=== PATIENT | male | born 1975 | race Caucasian/White ===

== ENCOUNTER 2018-06-08 19:30 | Observation (INO) | payer BC ==
[2018-06-08] MEDS ORDERED: Enoxaparin(*) 100 MG/ML SYR SUBCUT ONE (21:01)
[2018-06-08] MEDS ORDERED: Nitroglycerin 0.2 MG/HR PATCH* (5 MG) TRANSDERM ONE (21:01)
[2018-06-08] MEDS ORDERED: Aspirin 81 mg CHEW TAB* 81 MG TAB.CHEW PO ONE (21:01)
--- NOTE | 2018-06-08 21:16 | ED ---
HPI Chest Pain - HPI Summary HPI Summary: This patient is a 42 year old M presenting to [facility] with a chief complaint of central diffuse CP and heaviness/pressure since 06/07 s/p a high stress day and a heated argument with his . He is endorsing nausea, burning pain in his right neck, right anterior right sided CP near shoulder, dizziness, insomnia secondary to feeling hot/hyperthermic. Pt is a former smoker (quit over 10 years ago). He denies PMHx DM, HTN, CAD, heart problem. He denies using recreation stimulant substances. FHx uncle with arrhythmia, no other heart history. - History of Current Complaint Chief Complaint: EDChestWallPain Time Seen by Provider: 06/08/18 20:50 Hx Obtained From: Patient Onset/Duration: Started Days Ago, Still Present Timing: Constant Initial Severity: Moderate Current Severity: Moderate Pain Intensity: 4 Pain Scale Used: 0-10 Numeric Chest Pain Location: Mid Sternal, Right Anterior Chest Pain Radiates: Yes Chest Pain Radiates To:: Shoulder - R, Neck - R Character: Burning, Pressure/Squeezing, Tightness Aggravating Factor(s): Other: - Stress/arguement Alleviating Factor(s): Nothing Associated Signs and Symptoms: Positive: Chest Pain, Recent Stress, Dizziness, Fever - last PM, felt hot/hyperthermic, Nausea - Allergy/Home Medications Allergies/Adverse Reactions: Allergies Allergy/AdvReac Type Severity Reaction Status Date / Time No Known Allergies Allergy Verified 06/08/18 19:34 Home Medications: Home Medications NK [No Home Medications Reported] 06/08/18 [History Confirmed 06/08/18] PMH/Surg Hx/FS Hx/Imm Hx Endocrine/Hematology History: Denies: Hx Diabetes, Hx Sickle Cell Disease Cardiovascular History: Denies: Hx Hypertension Respiratory History: Denies: Hx Lung Cancer GI History: Denies: Hx Ileostomy History: Denies: Hx Dialysis Sensory History: Denies: Hx Legally Blind, Hx Deafness Opthamlomology History: Denies: Hx Legally Blind EENT History: Denies: Hx Deafness Neurological History: Denies: Hx Dementia Psychiatric History: Denies: Hx Autism Infectious Disease History: No Infectious Disease History: Denies: Traveled Outside the [place] in Last 30 Days - Family History Known Family History: Positive: Blood Disorder - brother, Other - arrhythmia Negative: Cardiac Disease, Hypertension - Social History Lives: With Family Alcohol Use: Rare Hx Substance Use: Yes Substance Use Type: Reports: Marijuana Hx Tobacco Use: Yes Smoking Status (MU): Former Smoker Review of Systems Positive: Fever - hot feeling last night/hyperthermic Positive: Chest Pain Positive: Nausea Positive: no symptoms reported Positive: Myalgia - right neck, right anterior shoulder Neurological: Other - Dizziness All Other Systems Reviewed And Are Negative: Yes Physical Exam - Summary Physical Exam Summary: Appearance: Well appearing, no pain distress Skin: warm, dry, reflects adequate perfusion Head/face: normal Eyes: EOMI, LOUISE ENT: normal Neck: supple, non-tender Respiratory: CTA, breath sounds present Cardiovascular: RRR, pulses symmetrical Abdomen: non-tender, soft Bowel: present Musculoskeletal: normal, strength/ROM intact Neuro: normal, sensory motor intact, A&Ox3 Triage Information Reviewed: Yes Vital Signs On Initial Exam: Initial Vitals Temp Pulse Resp BP Pulse Ox 97.4 F 82 16 121/67 99 06/08/18 19:33 06/08/18 19:33 06/08/18 19:33 06/08/18 19:33 06/08/18 19:33 Vital Signs Reviewed: Yes Diagnostics - Vital Signs Vital Signs Temp Pulse Resp BP Pulse Ox 06/08/18 20:26 58 15 96 06/08/18 20:25 62 17 127/86 97 06/08/18 19:33 97.4 F 82 16 121/67 99 - Laboratory Result Diagrams: 06/08/18 21:15 Lab Statement: Any lab studies that have been ordered have been reviewed, and results considered in the medical decision making process. - Radiology CXR Xray Interpretation: No Acute Changes Radiology Interpretation Completed By: ED Physician - Normal CXR. Pending official imaging report. - EKG 2025 Cardiac Rate: NL - 71 EKG Rhythm: Sinus Rhythm Ectopy: None EKG Interpretation: Q waves and T-wave inversions in leads III, AVF. Chest Pain Course/Dx - Course Course Of Treatment: A 42-year-old M presents to the ED with a CC of diffuse central CP s/p an arguement yesterday with his and a high stress day. (+) nausea, dizziness, pain radiation to right shoulder and right neck. He denies PMHx HTN, DM, CAD. He notes he is a former smoker, quit 10 years ago. He moved from [place], had a heated arguement and stressful day last night and sx onset right afterwards. He notes he could not sleep secondary to hot/flush/ hyperthermic feeling. A CXR was (-). An EKG reveals NSR at 71 BPM with T-wave inversions and Q waves in leads III and AVF. In the ED course, pt was given ASA , NTG, and Lovenox. Dr. Alejandro will follow up on labs and CTA. - Chest Pain Differential Diagnosis/HQI/PQRI: Acute NM, ACS, CHF, Lower Respiratory Infection , Pulmonary Embolism - Diagnoses Provider Diagnoses: Unstable angina - Provider Notifications Discussed Care Of Patient With: Matias Alejandro Time Discussed With Above Provider: 21:17 Instructed by Provider To: Other - accepts admission, will follow up on labs and CTA. - Critical Care Time Critical Care Time: 30-74 min Discharge - Sign-Out/Discharge Documenting (check all that apply): Patient Departure - admit - Discharge Plan Condition: Fair Disposition: ADMITTED TO [facility] Referrals: No Primary Care Phys,NOPCP [Primary Care Provider] - - Billing Disposition and Condition Condition: FAIR Disposition: Admitted to [facility] - Attestation Statements Document Initiated by Taliaibsrinivas: Yes Documenting Scribe: Vishal Rubio Provider For Whom Tameka is Documenting (Include Credential): Dr. Robert Jimenez MD Scribe Attestation: Vishal Frankel, scribed for Dr. Robert Jimenez MD on 06/08/18 at 2139. Scribe Documentation Reviewed: Yes Provider Attestation: The documentation as recorded by the Vishal oliver accurately reflects the service I personally performed and the decisions made by me, Dr. Robert Jimenez MD
[2018-06-08 21:22] LABS: ABS Basophils 0.1 10^3/ul (0-0.2); ABS Eosinophils 0.2 10^3/ul (0-0.6); ABS Lymphocytes 2.3 10^3/ul (1.0-4.8); ABS Monocytes 0.5 10^3/ul (0-0.8); ABS Nucleated RBC 0 10^3/ul; Eosinophil % 2.6 % (0-6); Hematocrit 45 % (42-52); Hemoglobin 15.3 g/dl (14.0-18.0); Lymphocyte % 33.1 % (25-47); Mean Corpuscular HGB Conc 34 g/dl (31-36); Mean Corpuscular Hemoglobin 32 pg (27-31); Mean Corpuscular Volume 93 fL (80-94); Mean Platelet Volume 7.7 um3 (7.4-10.4); Nucleated Red Blood Cells % 0.1; Platelet Count 230 10^3/ul (150-450); Red Blood Count 4.85 10^6/ul (4.00-5.40); Red Cell Distribution Width 13 % (10.5-15)
[2018-06-08 21:30] LABS: INR 0.86 (0.77-1.02)
[2018-06-08] MEDS ORDERED: Nitroglycerin 2% OINT* 1 GM PAK ONE (21:36)
[2018-06-08 21:41] LABS: EGFR Non-African American 81.4 (>60)
--- NOTE | 2018-06-08 21:49 | HP ---
H&P (Free Text) History and Physical: PCP: none Date/Time: 06/08/20182139 CC: chest pain HPI: Mr Shen is a 42YO male HX testicular CA who is completing a stressful move from [place]. Yesterday morning after an argument with his he experienced the rapid onset of non-exertional chest pressure radiating to the R shoulder and R neck associated with nausea, SOB, and sweating, but no palpitations or unusual light-headedness. He does report he often gets R shoulder and R jaw aching with exercise and has since childhood. Of note his brother has a bleeding issue the name of which he cannot recall and has had a DVT/PE. His ECG was concerning for having Q-waves in III/AVF and an inverted T in III suggesting R heart strain. D-dimer & CTA chest were both negative, however. Troponin is negative as well. PMedHx testicular CA Ambulatory Orders NK [No Home Medications Reported] 06/08/18 Allergies No Known Allergies Allergy (Verified 06/08/18 19:34) PSurgHx L orchiectomy R inguinal hernia repair anterior R thigh lipoma excision SocHx: quit smoking 2006 w/ <5PYHX but continues to chew tobacca, 1-2 alcoholic drinks daily, occasional marijuana but no other recreational drugs; works as an entrepreneurial engineering scientist; ; full code status FamHx: Mother is alive at 74 with HX non-cancerous thyroid nodule. Father is alive at 75 with cerebellar ataxia & glaucoma. Brother: uncertain bleeding issue (not Von Willabrand's) w/ HX DVT/PE ROS: as above, otherwise reviewed and all were negative vitals: Vital Signs Temp 36.8 C 06/08/18 22:55 Pulse 68 06/08/18 22:55 Resp 18 06/08/18 22:55 BP 136/78 06/08/18 22:55 Pulse Ox 97 06/08/18 22:55 Intake & Output 06/08/18 06/08/18 06/09/18 11:59 23:59 11:59 Weight 94.302 kg Constitutional: NAD, normally developed, overweight white male with pronounced [place] accent HEENM: atraumatic; sclera/conjunctiva: anicteric/clear; hearing: clinically intact; oropharynx: clear, mucosa moist Neck: soft tissue: non-tender; thyroid: normal Pulmonary: clear to auscultation bilaterally, good aeration, no accessory muscle use CV: RR/RR, normal S1S2, no carotid bruit, no jugular venous distention, 2+ B DP/ PT, no edema Abdominal: soft, non-distended, non-tender, no rebound/guarding/rigidity, normoactive bowel sounds, no hepatosplenomegaly or masses, no costovertebral angle tenderness Musculoskeletal: general: grossly intact; gait: stable Integumental: normal appearance and texture of exposed skin Psychiatric orientation: AA&O to PPS affect: calm mood: cooperative eye contact: good content: reliable responses: timely insight: good Testing: Lab Results 06/08/18 06/08/18 06/08/18 Range/Units 21:15 21:15 21:15 WBC 7.0 (3.5-10.8) 10^3/ul RBC 4.85 (4.00-5.40) 10^6/ul Hgb 15.3 (14.0-18.0) g/dl Hct 45 (42-52) % MCV 93 (80-94) fL MCH 32 H (27-31) pg MCHC 34 (31-36) g/dl RDW 13 (10.5-15) % Plt Count 230 (150-450) 10^3/ul MPV 7.7 (7.4-10.4) um3 Neut % (Auto) 56.3 (38-83) % Lymph % (Auto) 33.1 (25-47) % [place] % (Auto) 6.8 (0-7) % Eos % (Auto) 2.6 (0-6) % Baso % (Auto) 1.2 (0-2) % Absolute Neuts (auto) 4.0 (1.5-7.7) 10^3/ul Absolute Lymphs (auto) 2.3 (1.0-4.8) 10^3/ul Absolute Monos (auto) 0.5 (0-0.8) 10^3/ul Absolute Eos (auto) 0.2 (0-0.6) 10^3/ul Absolute Basos (auto) 0.1 (0-0.2) 10^3/ul Absolute Nucleated RBC 0 10^3/ul Nucleated RBC % 0.1 INR (Anticoag Therapy) 0.86 (0.77-1.02) APTT 33.9 (26.0-36.3) seconds D-Dimer, Quantitative < 200 (Less Than 230) ng/mL Sodium 138 (135-145) mmol/L Potassium 3.9 (3.5-5.0) mmol/L Chloride 105 (101-111) mmol/L Carbon Dioxide 26 (22-32) mmol/L Anion Gap 7 (2-11) mmol/L BUN 15 (6-24) mg/dL Creatinine 1.01 (0.67-1.17) mg/dL Est GFR ( Amer) 98.5 (>60) Est GFR (Non-Af Amer) 81.4 (>60) BUN/Creatinine Ratio 14.9 (8-20) Glucose 101 H (70-100) mg/dL Lactic Acid (0.5-2.0) mmol/L Calcium 9.5 (8.6-10.3) mg/dL Total Bilirubin 0.40 (0.2-1.0) mg/dL AST 23 (13-39) U/L ALT 26 (7-52) U/L Alkaline Phosphatase 60 (34-104) U/L Troponin I 0.00 (<0.04) ng/mL B-Natriuretic Peptide ( - 100) pg/mL Total Protein 7.2 (6.4-8.9) g/dL Albumin 4.8 (3.2-5.2) g/dL Globulin 2.4 (2-4) g/dL Albumin/Globulin Ratio 2.0 (1-3) 06/08/18 06/08/18 06/09/18 Range/Units 21:15 21:15 00:08 WBC (3.5-10.8) 10^3/ul RBC (4.00-5.40) 10^6/ul Hgb (14.0-18.0) g/dl Hct (42-52) % MCV (80-94) fL MCH (27-31) pg MCHC (31-36) g/dl RDW (10.5-15) % Plt Count (150-450) 10^3/ul MPV (7.4-10.4) um3 Neut % (Auto) (38-83) % Lymph % (Auto) (25-47) % [place] % (Auto) (0-7) % Eos % (Auto) (0-6) % Baso % (Auto) (0-2) % Absolute Neuts (auto) (1.5-7.7) 10^3/ul Absolute Lymphs (auto) (1.0-4.8) 10^3/ul Absolute Monos (auto) (0-0.8) 10^3/ul Absolute Eos (auto) (0-0.6) 10^3/ul Absolute Basos (auto) (0-0.2) 10^3/ul Absolute Nucleated RBC 10^3/ul Nucleated RBC % INR (Anticoag Therapy) (0.77-1.02) APTT (26.0-36.3) seconds D-Dimer, Quantitative (Less Than 230) ng/mL Sodium (135-145) mmol/L Potassium (3.5-5.0) mmol/L Chloride (101-111) mmol/L Carbon Dioxide (22-32) mmol/L Anion Gap (2-11) mmol/L BUN (6-24) mg/dL Creatinine (0.67-1.17) mg/dL Est GFR ( Amer) (>60) Est GFR (Non-Af Amer) (>60) BUN/Creatinine Ratio (8-20) Glucose (70-100) mg/dL Lactic Acid 0.8 (0.5-2.0) mmol/L Calcium (8.6-10.3) mg/dL Total Bilirubin (0.2-1.0) mg/dL AST (13-39) U/L ALT (7-52) U/L Alkaline Phosphatase (34-104) U/L Troponin I 0.00 (<0.04) ng/mL B-Natriuretic Peptide 6 ( - 100) pg/mL Total Protein (6.4-8.9) g/dL Albumin (3.2-5.2) g/dL Globulin (2-4) g/dL Albumin/Globulin Ratio (1-3) ECG, personally reviewed: NSR rate 71, Q-waves III/AVF, inverted T-wave III, flattened T-wave AVF; no comparison CXR, personally reviewed: no acute process CTA chest, personally reviewed: IMPRESSION: No visible acute pulmonary embolism. Impression: 42M HX testicular CA presents with atypical chest pain for r/o ACS DIAGNOSIS & PLAN Primary chest pain r/o ACS : telemetry : trend troponin : supplemenal oxygen : enoxaparin 1mg/kg given in ED : aspirin 324mg given in ED : no beta-estelle 2nd bradycardia : supplemental oxygen : exercise stress test in AM : supportive care : consider cardiology consult pending above Secondary HX testicular CA : s/p L orchiectomy remotely, no acute issues Admission Rational: Inpatient as without the above interventions the risk of impending adverse outcome is unacceptably high; inappropriate for the outpatient setting DVTp: enoxaparin Code Status: full HCP:
[2018-06-08] MEDS ORDERED: Iohexol 350* (CONTRAST) 500 ML MDV IV ONE (21:52)
[2018-06-08] MEDS ORDERED: Melatonin 3 MG TAB PO PRN (22:03)
[2018-06-08] MEDS ORDERED: Acetaminophen TAB* 325 MG PO PRN (22:03)
[2018-06-08] MEDS ORDERED: Ondansetron ODT TAB* 4 MG PO PRN (22:03)
[2018-06-08] MEDS ORDERED: NS 0.9% 1000 ML* 1,000 ML IV SCH (22:15)
--- NOTE | 2018-06-08 23:10 | RAD ---
EXAM: CT Angiography Chest With Intravenous Contrast CLINICAL HISTORY: 42 years old, male; Pain; Chest pain; Type not specified; Additional info: Pe/cp TECHNIQUE: Axial computed tomographic angiography images of the chest with intravenous contrast using pulmonary embolism protocol. All CT scans at this facility use at least one of these dose optimization techniques: automated exposure control; mA and/or kV adjustment per patient size (includes targeted exams where dose is matched to clinical indication); or iterative reconstruction. MIP reconstructed images were created and reviewed. Coronal and sagittal reformatted images were created and reviewed. CONTRAST: 85 mL of OMNIPAQUE 350 administered intravenously. COMPARISON: No relevant prior studies available. FINDINGS: Pulmonary arteries: No visible acute pulmonary embolism. Aorta: No acute findings. No thoracic aortic aneurysm. Lungs: There is mild bibasilar and bilateral dependent atelectatic change or scarring. No mass. Pleural space: Unremarkable. No significant effusion. No pneumothorax. Heart: Unremarkable. No cardiomegaly. No significant pericardial effusion. No evidence of RV dysfunction. Bones/joints: No acute fracture. No dislocation. Soft tissues: Unremarkable. Lymph nodes: Unremarkable. No enlarged lymph nodes. IMPRESSION: No visible acute pulmonary embolism.
[2018-06-09] MEDS ORDERED: Morphine INJ* 4 MG/ML 1 ML SYRINGE (NEW SYRINGE VERSION) IV PRN (03:00)
[2018-06-09] MEDS ORDERED: Omeprazole CAP* 20 MG PO SCH (06:00)
--- NOTE | 2018-06-09 08:19 | RAD ---
Indication: Chest pain. Single frontal view of the chest performed at 2114 hours was reviewed. No prior study is available for comparison. No mediastinal shift is noted. Heart is of normal size and configuration. Lung braden appear clear. IMPRESSION: NO ACTIVE CARDIOPULMONARY DISEASE IS NOTED.
--- NOTE | 2018-06-09 10:07 | ECHO ---
Patient: ANNIE CALDERON [facility] Rec#: [id number] : 1975 Date: 06/09/2018 Age: 42y Height: 185 cm / 72.8 in Weight: 94 kg / 207.2 lbs Sex: M BSA: 2.18 Room#: 432 Admit Date#: 06/08/2018 Type: Inpatient Referring: Matias Alejandro MD Reading: Jonny Zambrano DO Heel Buffer: Leonarda Hair [facility] Transthoracic Echocardiogram Indication: CP BP: 121/60 HR: 61 Rhythm: NSR Findings History: Prior testicular cancer,SOB, Q waves lead III and AVF, former smoker. Technical Comments: The study quality is good. Completed at 0821. Left Ventricle: The left ventricular chamber size is normal. There is no left ventricular hypertrophy. Global left ventricular wall motion and contractility are within normal limits. There is normal left ventricular systolic function. The estimated ejection fraction is 55-60%. Normal left ventricular diastolic filling is observed. Left Atrium: The left atrial chamber size is normal. Right Ventricle: The right ventricular chamber size and systolic function are within normal limits. Right Atrium: The right atrial cavity size is normal. Aortic Valve: The aortic valve is trileaflet. There is no evidence of aortic regurgitation. There is no evidence of aortic stenosis. Mitral Valve: The mitral valve leaflets appear normal. There is a trace of mitral regurgitation. There is no evidence of mitral stenosis. Tricuspid Valve: The tricuspid valve leaflets are normal. There is trace to mild tricuspid regurgitation. No pulmonary hypertension is noted. There is no tricuspid stenosis. Pulmonic Valve: The pulmonic valve appears normal. There is a trace pulmonic regurgitation. There is no pulmonic stenosis. Pericardium: There is no significant pericardial effusion. Aorta: There is no dilatation of the ascending aorta. There is no dilatation of the aortic arch. There is no dilation of the aortic root. Pulmonary Artery: The main pulmonary artery is not well visualized. Venous: The inferior vena cava appears normal in size. There is a greater than 50% respiratory change in the inferior vena cava dimension. Conclusions The left ventricular chamber size is normal. There is no left ventricular hypertrophy. Global left ventricular wall motion and contractility are within normal limits. There is normal left ventricular systolic function. The estimated ejection fraction is 55-60%. The left atrial chamber size is normal. The right ventricular chamber size and systolic function are within normal limits. No significant valvular abnormalities noted None prior for comparison at time of interpretation. Measurements Name Value Normal Range RVIDd (AP) 2D 3.3 cm (0.9 - 2.6) RAd ISD 4CH 4.9 cm (3.4 - 4.9) RA (A4C)W 4.1 cm (2.9 - 4.6) IVSd (2D) 1.1 cm (0.6 - 1) LVPWd (2D) 0.8 cm (0.6 - 1) LVIDd (2D) 4 cm (3.6 - 5.4) LVIDs (2D) 3.1 cm - LV FS (2D) 23 % (25 - 45) Aortic Annulus 1.9 cm (1.4 - 2.6) Ao root diameter (2D) 3 cm (2.1 - 3.5) Aortic arch 2.3 cm (1.8 - 3.4) Descending Ao 1.1 cm - LA dimension (AP) 2D 3.1 cm (2.3 - 3.8) LAd ISD 4CH 3.9 cm (2.9 - 5.3) LA ISD 4CH W 3.1 cm (2.5 - 4.5) Name Value Normal Range LA ESV SP 4CH (A/L) 21 ml - LA ESV BP (A/L) index 23 ml/m2 - Name Value Normal Range MV E-wave Vmax 0.7 m/sec - MV deceleration time 201 msec - MV A-wave Vmax 0.6 m/sec - MV E:A ratio 1.2 ratio - LV septal e' Vmax 0.09 m/sec - LV lateral e' Vmax 0.14 m/sec - LV E:e' septal ratio 7.78 ratio - LV E:e' lateral ratio 5 ratio - Name Value Normal Range AV Vmax 1.2 m/sec - AV VTI 28.8 cm - AV peak gradient 6 mmHg - AV mean gradient 3 mmHg - LVOT Vmax 1 m/sec - LVOT VTI 24.3 cm - LVOT peak gradient 4 mmHg - LVOT mean gradient 2 mmHg - Name Value Normal Range TR Vmax 2.2 m/sec - TR peak gradient 20 mmHg - RAP 3 mmHg - RVSP 23 mmHg - IVC diameter 1.9 cm - Name Value Normal Range PV Vmax 0.7 m/sec - PV peak gradient 2 mmHg -
[2018-06-09 13:57] LABS: EGFR Non-African American 84.3 (>60)
[2018-06-09 16:35] VITALS: BP 117/58
--- NOTE | 2018-06-09 17:55 | PN ---
Subjective Date of Service: 06/09/18 Interval History: Patient seen and examined at bedside. Denies fever, chills, shortness of breath , N/V/D. Pt states that he continues to have a slight "burning" chest pain. This pain is not radiating and nothing is provoking the symptoms today. He reports being under a lot of stress lately. He has also been moving heavy objects. Pt states that he is spending half his time here and half his time in [place], [place]. He will be returning to [place] next week. He states that he has a PCP there. Pt able to ambulate in the morales and no change in his symptoms. He also reports some discomfort in his epigastric area, similar to heart burn. Tele: Sinus andrew to sinus rhythm, rate 50-80's. 10 run beat of V tach. Family History: Unchanged from Admission Social History: Unchanged from Admission Past Medical History: Unchanged from Admission Objective Vital Signs - 8 hr 06/09/18 06/09/18 11:25 15:05 Temperature 98.1 F 97.8 F Pulse Rate 89 76 Respiratory 16 16 Rate Blood Pressure 119/73 117/58 (mmHg) O2 Sat by Pulse 93 98 Oximetry Oxygen Devices in Use Now: None Appearance: NAD, sitting up in bed Ears/Nose/Mouth/Throat: Mucous Membranes Moist Respiratory: Symmetrical Chest Expansion and Respiratory Effort, Clear to Auscultation Cardiovascular: NL Sounds; No Murmurs; No JVD, RRR Abdominal: NL Sounds; No Tenderness; No Distention Extremities: No Edema, - - Non-reporducible chest discomfort Skin: No Rash or Ulcers Neurological: Alert and Oriented x 3, NL Muscle Strength and Tone Lines/Tubes/Other Access: Clean, Dry and Intact Peripheral IV - site benign Nutrition: Taking PO's Result Diagrams: 06/08/18 21:15 06/09/18 13:20 Assess/Plan/Problems-Billing Assessment: Mr. Shen is a 42 yo male with PMH significant for testicular cancer who presented to the emergency room with complaints of chest discomfort after an argument with his . - Patient Problems (1) Chest pain Code(s): R07.9 - CHEST PAIN, UNSPECIFIED SNOMED Code(s): 97128491 Comment: - Suspect non-cardiac, possibly GERD - Low risk exercise stress test - Echo without acute findings - CTA chest negative for PE - Troponin 0.00 x3 - Continue Omeprazole (2) Ventricular tachycardia (paroxysmal) Code(s): I47.2 - VENTRICULAR TACHYCARDIA SNOMED Code(s): 44044974 Comment: - 8 beat run - Electrolytes WNL (3) Testicular cancer Code(s): C62.90 - MALIG NEOPLASM OF UNSP TESTIS, UNSP DESCENDED OR UNDESCENDED SNOMED Code(s): 750868232 Comment: - S/P orchiectomy - Continue to follow with PCP (4) DVT prophylaxis Code(s): OXK8259 - SNOMED Code(s): 938375798 (5) Full code status Code(s): Z78.9 - OTHER SPECIFIED HEALTH STATUS SNOMED Code(s): 756836514 Status and Disposition: OBV. Stable for discharge to home.
--- NOTE | 2018-06-11 01:37 | DS ---
CC: Dr. Thea Gray, in [place], [place], Phone number [phone]; [facility] * DISCHARGE SUMMARY: DATE OF ADMISSION: 06/08/18. DATE OF DISCHARGE: 06/09/18. ATTENDING PHYSICIAN: Dr. Jacinto Prasad * (dictated by Haroldo Alexis NP). PRIMARY CARE PROVIDER: Dr. Thea Gray, in [place], [place]. PRIMARY DIAGNOSES: 1. Chest pain, suspected noncardiac in nature. 2. Gastroesophageal reflux disease. SECONDARY DIAGNOSIS: Remote history of testicular cancer. STUDIES WHILE IN THE HOSPITAL: 1. Chest x-ray on 06/08/18. Radiologist's impression: No active cardiopulmonary disease is noted. 2. Chest thoracic CTA on 06/08/18. Radiologist's impression: No visible acute pulmonary embolism. 3. Transthoracic echocardiogram on 06/09/18. Feeder Catcher Tobacco's conclusion: The left ventricular chamber size is normal. There is no left ventricular hypertrophy. Global left ventricular wall motion and contractility are within normal limits. There is normal left ventricular systolic function. The estimated ejection fraction is 55% to 60%. The left atrium chamber size is normal. The left ventricular chamber size and systolic function are within normal limits. No significant valvular abnormalities noted. No prior for comparison at the time of interpretation. 4. Exercise cardiac stress test. Feeder Catcher [employer]'s observation: Resting EKG in normal sinus rhythm, rate 63. No acute changes. Exercise by standard Reg protocol to 13 minutes achieved 14.8 METs, heart rate to 110% age predicted with normal 1 minute recovery heart rate. Normal BP response to exercise. Atypical pre- existing chest discomfort with mild improvement with exercise. No definitive symptoms of ischemia elicited. No definitive EKG changes of ischemia with exercise or in recovery. One PVC seen 2 minutes into recovery. Feeder Catcher [employer]'s conclusion: Low risk Conway score exercise stress test. DISCHARGE MEDICATIONS: New home medication, omeprazole 20 mg oral daily. HISTORY OF PRESENT ILLNESS/HOSPITAL COURSE: Mr. Shen is a 42-year-old male with past medical history significant for testicular cancer, who has been working between the [facility] and [place], [place]. He got in an argument with his and he experienced a rapid onset of nonexertional chest pressure radiating to his right shoulder and right neck associated with nausea, shortness of breath, and sweating. He had no palpitations or lightheadedness. He reports often getting right shoulder and right jaw aching with exercise since childhood. He has a brother with a bleeding disorder with a history of DVT and PE, and due to his symptoms, he presented to the emergency room for further evaluation. While in the emergency room, the patient had labs that were unremarkable. He had an EKG concerning for Q-waves in leads III and aVF and inverted T-wave in lead 3 suggesting possible right heart strain. He had a D-dimer and chest CTA that were negative and negative troponin. The Hospitalists were asked to evaluate the patient for admission. While in the hospital, the patient was monitored on telemetry. He had no events. He had a transthoracic echocardiogram showing no abnormalities. No signs of right heart strain. He underwent an exercise stress test showing a low -risk score. It is noted that at some point during his time on the floor after his exercise stress test, he was noted to have a 10-run beat of V-tach. He had electrolytes checked and these were normal. He was ambulated around in the hallway and we were unable to elicit these V-tach again. He continued to have atypical chest discomfort that he describes as a burning across his chest and in his epigastric area. The patient states that he is under a lot of stress as he is living 2 weeks here and 2 weeks in [place], [place]. He had troponins that were flat. His EKG in the morning of 06/09, showed normal sinus. Mr. Shen is stable for discharge home today. Vital signs are as follows : Temperature 97.8, heart rate 76, respiratory rate 16, O2 sat 98% on room air, blood pressure 117/58. DISCHARGE PLAN: Mr. Shen will be discharged to home. Activity as tolerated. He can continue on a regular diet. In regards to his chest pain, I suspect this is atypical chest pain and noncardiac in nature. It is nonreproducible, so I do not feel that it is muscular. I suspect it is secondary to stress and possibly GERD. He has been started on omeprazole 20 mg oral daily. He did not want a prescription sent and preferred to cloth picker over- the-counter omeprazole. The patient states that he will be returning to [place] around 06/15/18 and he has been asked to call his primary care provider , Dr. Thea Gray and set up a followup appointment as soon as possible. Additionally, the patient has been provided with a phone number for the [facility] in the event he needs to be seen for non-emergent care while in [place]. We discussed ways of trying to decrease his stress. The patient has been instructed to report to the closest emergency room if he develops any changes in his chest pain. This is a summarized report of a complex medical history and hospital stay. For further details, please see the entire medical record. TIME SPENT: Time for this discharge was approximately 50 minutes, greater than half of that was spent with the patient and his discussing discharge plans and instructions. CONDITION ON DISCHARGE: Stable. HAROLDO ALEXIS NP [id number]/CPS #: [id number]
== END 2018-06-09 17:41 | disposition home or self-care (01) ==
LOC: ED 19:30 → MEDTELE 21:49
PROVIDERS: ADMIT Hospitalist; ATTEND Internal Medicine
DX: R07.9 Chest pain, unspecified (principal); K21.9 Gastro-esophageal reflux disease without esophagitis; Z85.47 Personal history of malignant neoplasm of testis; Z79.899 Other long term (current) drug therapy; Z87.891 Personal history of nicotine dependence; I47.2 Ventricular tachycardia
CPT/HCPCS: 36415; 71045; 71275; 80048; 80053; 83605; 83735; 83880; 84484; 85025; 85379; 85610; 85730; 93005; 93306; 96372; 96374; 99284; A9270-GY; G0378; J1650; J2270; Q9967